=== PATIENT | female | born 1945 | race Caucasian/White ===

== ENCOUNTER 2025-01-09 14:01 | Day surgery (SDC) | payer MEDICARE, OTHER ==
[2025-01-06 12:08] LABS: MEAN PLATELET VOLUME 8.5 FL (7.4-10.4); RED CELL DISTRIBUTION WIDTH 14.5 % (11.5-14.5)
[2025-01-06 12:18] LABS: APTT 29 SECONDS (22-32); INR 1.0 INR
[2025-01-06 12:27] LABS: CHOL/HDL RATIO 1.8 (0.00-4.99); CREATININE 0.85 MG/DL (0.40-0.90); LDL CHOLESTEROL 47 MG/DL (50-100); TOTAL CARBON DIOXIDE 27.7 MMOL/L (24-32); eGFR 64 ML/MIN
[~2025-01-09] VITALS: Ht 157.5 cm; Wt 64.8 kg
[2025-01-09] VITALS (7 sets, daily range): BP systolic 142–158; BP diastolic 57–71; PULSE 69–88; RESP 11–17; TEMP 98.1; O2SAT 80–97
[2025-01-09] MEDS ORDERED: CARV6.2553 PO (14:38)
[2025-01-09] MEDS ORDERED: ROSU20TA98 PO (14:38)
[2025-01-09] MEDS ORDERED: CLOP75TA34 PO (14:38)
[2025-01-09] MEDS ORDERED: LISI10TA27 PO (14:38)
[2025-01-09] MEDS ORDERED: ASPI81TA52 PO (14:40)
--- NOTE | 2025-01-09 14:44 | ELECTROCARDIOGRAPH REPORT ---
[facility] Test Date: 2025-01-09 Test Time: 14:42:36 Pat Name: ELLIS THAKUR Department: [facility] Patient ID: [facility]-[id number] Room: Gender: F Specification Writer: CHERRI : 1945 Requested By: SONNY FRANCO Order Number: [id number] Reading MD: Dr. FILIBERTO Araya Measurements Intervals Independence Rate: 88 P: 49 NH: 142 QRS: -15 QRSD: 83 T: 45 QT: 375 QTc: 454 Interpretive Statements Sinus rhythm Probable left atrial enlargement Inferior infarct, old Electronically Signed On 01-10-2025 17:11:[address] FILIBERTO Araya Please click the below link to view image of tracing.
[2025-01-09] MEDS ORDERED: phenylephrine 10mg/ml inj. ONE (15:59)
[2025-01-09] MEDS ORDERED: LIDOcaine 1% 30ml preserv. free vial ONE (15:59)
[2025-01-09] MEDS ORDERED: atropine 0.1mg/ml 10ml syringe ONE (16:00)
[2025-01-09] MEDS ORDERED: DOPamine 400mg/D5W 250ml 0 ML IV ONE (16:00)
[2025-01-09] MEDS ORDERED: heparin 1,000unit/ml 10ml vial 0 ML ONE (16:00)
--- NOTE | 2025-01-20 21:14 | CARDIOLOGY REPORT ---
DATE OF SERVICE: 01/09/2025 DICTATING PHYSICIAN: Kell Moncada MD CARDIAC CATHETERIZATION REPORT DATE OF STUDY: 01/09/2025 PROCEDURES: * Aortic arch angiography. * Selective left common, left internal and left external carotid artery angiography. * Selective right common femoral artery angiography. * Hemostasis using the Perclose device. INDICATION: High-grade stenosis. PHYSICIAN: Kell Moncada MD DESCRIPTION OF PROCEDURE: After informed consent was obtained, the patient was brought to the lab where she was prepped and draped in the usual sterile fashion. After adequate anesthesia was obtained using 1% lidocaine to the right groin, a 6-Georgian sheath was inserted into the right femoral artery. Thereafter, using a pigtail catheter, the catheter was advanced into the ascending aorta and aortic arch angiography performed. Next, using a Screen Fix Gibson 2 catheter, the catheter was advanced over a 0.035 wire and manipulated to engage the left common carotid artery. Selective angiography of the left common, internal and external carotid artery angiography was performed. Thereafter, right common femoral artery angiography was performed and hemostasis obtained using the Perclose device. FINDINGS: The patient has a normal type I aortic arch with mild calcification of the great vessels. No high-grade stenosis noted. No significant stenosis is noted in the left common carotid artery. A tortuous left internal carotid artery with a calcified 30% stenosis is noted. IMPRESSION: A 30% to 40% calcified stenosis of the left internal carotid artery. RECOMMENDATION: Medical management. Kell Moncada MD TID: [id number] RECEIPT: [id number] FIORELLA/OTONIEL
== END 2025-01-09 19:55 | disposition home or self-care (01) ==
LOC: SSTAY O 14:01
PROVIDERS: ATTEND Student in an Organized Health Care Education/Training Program
DX: I65.22 Occlusion and stenosis of left carotid artery (principal); I25.10 Atherosclerotic heart disease of native coronary artery without angina pectoris; I11.9 Hypertensive heart disease without heart failure; E78.5 Hyperlipidemia, unspecified; Z98.51 Tubal ligation status; Z90.710 Acquired absence of both cervix and uterus; Z82.49 Family history of ischemic heart disease and other diseases of the circulatory system; Z79.899 Other long term (current) drug therapy; Z88.8 Allergy status to other drugs, medicaments and biological substances
CPT/HCPCS: 36222; 36415; 80048; 80061; 83695; 85025; 85610; 85730; 93005; A6258; C1760; C1894; J1644; J2003; J2371; J7030; Q0163; Q9967; Z7610; J0461; J1265